=== PATIENT | female | born 1995 | race Caucasian/White ===

== ENCOUNTER → 2016-11-23 | Outpatient (CLI) | payer MEDICAID ==
[~2016-11-23] MED LIST: DIPH25TA82 PO; IBUP-1773 PO; OXYC1TAB16 PO; PREN1TAB19 PO
--- OUTSIDE RECORDS SUMMARY | 2016-11-23 13:59 | XMS REPORT ---
Author Author ADELFO JAMIL [facility] Address [address] [place], [place] [id number] Care Team Providers Care Used Car Lot Attendant Name Role Phone Mookie JAMIL PCP Unavailable Allergies and Adverse Reactions Name Reaction Notes No known drug allergy Plan of Treatment Planned Activity Comments Planned Date Planned Time Plan/Goal Injection, Subcutaneous/IM 09/24/2016 12:00 AM Medications Active Name Start Date Estimated Completion Date SIG Comments phentermine 37.5 mg oral tablet buspirone 10 mg oral tablet Problem List Not available. Vital Signs Date Time BP-Sys(mm[Hg] BP-Rafaela(mm[Hg]) HR(bpm) RR(rpm) Temp WT HT HC BMI BSA BMI Percentile O2 Sat(%) 09/24/2016 2:47:00 PM 110 mmHg 70 mmHg 103 bpm 16 rpm 96.9 F 194 lbs 68 in 29.50 kg/m2 2.05 m2 97 % Social History Name Description Comments smoking no Alcohol Use - Rare Uses seatbelts yes Exercises regularly yes History of Procedures Not available. Results Summary Not available. History Of Immunizations Not available. History of Past Illness Name Date of Onset Comments Hemorrhoid Anxiety Depression Eustachian tube dysfunction, bilateral Sep 24 2016 2:47PM Moderate Acute Purulent postnasal drainage Sep 24 2016 2:47PM Moderate Acute Sinus pressure Sep 24 2016 2:47PM Acute frontal sinusitis, recurrence not specified Sep 24 2016 2:47PM Payers Insurance Name Company Name Plan Name Plan Number Policy Number Policy Group Number Start Date [employer] - [facility] - [place] State Plan [facility] State Plan [id number] N/A History of Encounters Visit Date Visit Type Provider 09/24/2016 Office visit ADELFO PARSONS
--- NOTE | 2016-11-23 15:08 | Diagnostic Imaging Report ---
PROCEDURE: US OB SINGLE FETUS <14 WKS. TECHNIQUE: Multiple real-time grayscale images were obtained over the gravid uterus in various projections. INDICATION: Uncertain dates. COMPARISON: There are no prior studies available for comparison. FINDINGS: There is a gestational sac within the uterus containing a single live embryo. Embryonic heart motion was noted, and a rate of 156 BPM was recorded. The crown-rump length suggests the estimated gestational age is 7 weeks 1 day, +/-1/2 week. There were no obvious embryonic abnormalities identified. The amniotic fluid volume is within normal limits. At this time, it is not certain where the placenta will develop. The right ovary was visualized and was generally unremarkable. The left ovary was not identified. There is no pelvic mass or free fluid collection noted. IMPRESSION: 1. There is a single live intrauterine of approximately 7 weeks 1 day gestation, +/- 1/2 week. The EDC is July 11, 2017. 2. There were no obvious embryonic abnormalities identified. If a more sensitive evaluation of the anatomy is desired, then a short-term (12-14 week) followup ultrasound exam would be recommended for further study. Dictated by: Dictated on workstation # [id number]
== END ==
LOC: RAD 13:55
PROVIDERS: ATTEND Family Medicine
DX: Z34.91 Encounter for supervision of normal pregnancy, unspecified, first trimester (principal); Z3A.01 Less than 8 weeks gestation of pregnancy
CPT/HCPCS: 76801

== ENCOUNTER → 2017-04-13 | Outpatient (CLI) | payer MEDICAID ==
[~2017-04-13] MED LIST changes: +AMIT50TA3 PO; +BUSP10TA95 PO; +DIPH25TA31 PO; +DOCU100C37 PO; +IBUP-1780 PO; +OXYC-465 PO; +[UNRECOGNIZED DRUG - CODE] PO
--- NOTE | 2017-04-13 17:17 | Diagnostic Imaging Report ---
INDICATION: survey. TECHNIQUE: OB sonography performed in the routine fashion and compared to the prior study of 11/23/2016. FINDINGS: A single live intrauterine fetus is seen measuring at 27 weeks 0 days in size. This is close to the dates expected clinically. survey showed no detectable abnormalities although cord insertion was not well seen due to position. heart rate is 133 beats per minute. Placenta is anterior with no evidence of previa. The fetus is in variable presentation. Biometrical measurements are as follows: Biparietal 6.52 cm, age 26 weeks 3 days. Head circumference 24.81 cm, age 27 weeks 0 days. Abdominal circumference 21.8 cm, age 26 weeks 3 days. Femur length 5.25 cm, age 28 weeks 0 days. Sonographic estimate age: 27 weeks 0 days. Sonographic estimated date of delivery: 07/13/2017. Estimated Weight: 1006 gm (+/- 147 gm). LMP percentile: 26%. heart rate: 133 beats per minute. number: 1 of 1. IMPRESSION: Single live intrauterine fetus measuring 27 weeks 0 days in size with normal interval growth since the prior study. survey showed no detectable abnormalities although cord insertion was not well seen. Consider followup as clinically warranted. Dictated by: Dictated on workstation # [id number]
== END ==
LOC: RAD 13:18
PROVIDERS: ATTEND Family Medicine
DX: Z36 Encounter for antenatal screening of mother (principal); Z3A.27 27 weeks gestation of pregnancy
CPT/HCPCS: 76805

== ENCOUNTER 2017-07-05 13:14 | Outpatient (CLI) | payer MEDICAID ==
[~2017-07-05] VITALS: Ht 170.2 cm; Wt 124.7 kg
[~2017-07-05 13:14] MED LIST changes: -AMIT50TA3 PO; -BUSP10TA95 PO; -DIPH25TA31 PO; -DOCU100C37 PO; -IBUP-1780 PO; -OXYC-465 PO; -[UNRECOGNIZED DRUG - CODE] PO
[2017-07-05] MEDS ORDERED: AMIT50TA3 PO (14:46)
[2017-07-05] MEDS ORDERED: BUSP10TA95 PO (14:46)
[2017-07-05] MEDS ORDERED: [UNRECOGNIZED DRUG - CODE] PO (14:46)
[2017-07-05] MEDS ORDERED: DIPH25TA31 PO (14:47)
[2017-07-07] MEDS ORDERED: IBUP-1780 PO (07:43)
[2017-07-07] MEDS ORDERED: OXYC-465 PO (07:43)
[2017-07-07] MEDS ORDERED: DOCU100C37 PO (07:44)
== END 2017-07-05 15:22 ==
LOC: PREOP 13:14
PROVIDERS: ATTEND Obstetrics & Gynecology
DX: Z01.818 Encounter for other preprocedural examination (principal); O34.219 Maternal care for unspecified type scar from previous cesarean delivery; D64.9 Anemia, unspecified; Z3A.00 Weeks of gestation of pregnancy not specified

== ENCOUNTER 2017-07-06 06:05 | Inpatient (IN) | payer MEDICAID ==
[~2017-07-06] VITALS: Ht 172.7 cm; Wt 133.0 kg
[~2017-07-06 06:05] MED LIST changes: +AMIT50TA3 PO; +BUSP10TA95 PO; +DIPH25TA31 PO; +[UNRECOGNIZED DRUG - CODE] PO
[2017-07-06] MEDS ORDERED: ceFAZolin 2 GM/50 ML NS 50 ML ONE (06:12)
[2017-07-06] MEDS ORDERED: metroNIDAZOLE 500MG/100ML IVPB 100 ML ONE (06:12)
[2017-07-06] MEDS ORDERED: METOCLOPRAMIDE INJ 10 MG/2 ML (REGLAN) ONE (06:12)
[2017-07-06] MEDS ORDERED: FAMOTIDINE 20MG/2ML IV (PEPCID) ONE (06:12)
[2017-07-06] MEDS ORDERED: CITRIC ACID/SOB CIT (BICITRA) 30 ML UDC ONE (06:12)
[2017-07-06] MEDS ORDERED: FAMOTIDINE 20MG/2ML IV (PEPCID) IV ONE (06:30)
[2017-07-06] MEDS ORDERED: CITRIC ACID/SOB CIT (BICITRA) 30 ML UDC PO ONE (06:30)
[2017-07-06] MEDS ORDERED: METOCLOPRAMIDE INJ 10 MG/2 ML (REGLAN) IV ONE (06:30)
[2017-07-06] MEDS ORDERED: CATHETER FLUSH 10 ML SYR IV PRN (06:30)
[2017-07-06] MEDS: LACTATED RINGERS 1,000 ML IV PRN ×2 (06:30→07:25)
[2017-07-06 06:55] LABS: BASOPHILS % (AUTO) 0 % (0-10); EOSINOPHILS # (AUTO) 0.3 10^3/uL (0.0-0.3); EOSINOPHILS % (AUTO) 2 % (0-10); LYMPHOCYTES # (AUTO) 3.1 X 10^3 (1.0-4.0); LYMPHOCYTES % (AUTO) 21 % (12-44); MEAN CORPUSCULAR HEMOGLOBIN 29 PG (25-34); MEAN CORPUSCULAR HGB CONC 34 G/DL (32-36); MEAN CORPUSCULAR VOLUME 87 FL (80-99); MEAN PLATELET VOLUME 10.1 FL (7.4-10.4); MONOCYTES # (AUTO) 1.4 X 10^3 (0.0-1.0); MONOCYTES % (AUTO) 10 % (0-12); NEUTROPHILS # (AUTO) 10.1 X 10^3 (1.8-7.8); NEUTROPHILS % (AUTO) 67 % (42-75); PLATELET COUNT 330 10^3/uL (130-400); RED BLOOD COUNT 4.82 10^6/uL (4.35-5.85); RED CELL DISTRIBUTION WIDTH 13.1 % (10.0-14.5)
[2017-07-06] MEDS ORDERED: fentaNYL INJECTION 100 MCG/2 ML AMP ONE (06:56)
[2017-07-06] MEDS ORDERED: KETAMINE HCL 100 MG/ML 5 ML VIAL ONE (06:56)
[2017-07-06] MEDS ORDERED: D5 LR IV SOLUTION 1,000 ML IV SCH (07:11)
[2017-07-06] MEDS ORDERED: TETANUS,DIPTH,PERTUSS P/F (BOOSTRIX) 0.5 ML VIAL IM ONE (07:15)
[2017-07-06] MEDS ORDERED: PROMETHAZINE INJ 25 MG/ML (PHENERGAN) AMP IM PRN (07:15)
[2017-07-06] MEDS ORDERED: MEPERIDINE (DEMEROL) INJ 100 MG/ML IM PRN (07:15)
[2017-07-06] MEDS ORDERED: metroNIDAZOLE 500MG/100ML IVPB 100 ML IV ONE (07:15)
[2017-07-06] MEDS ORDERED: MEASLES,MUMPS,RUBELLA 1 EA INJ SC ONE (07:15)
[2017-07-06] MEDS ORDERED: ceFAZolin INJECTION 1,000 MG in NS (IVPB) 50 ML IV ONE (07:15)
--- NOTE | 2017-07-06 07:16 | History & Physical ---
History and Physical Date Seen by Provider: Jul 06, 2017 Time Seen by Provider: 07:14 this patient is a 21-year-old white female patient of Dr. Chadwick who presents now at 39+ weeks' gestation. She currently has active herpetic lesions on the labia.. She denies rupture membranes or bleeding. She had a GBS culture that was negative. Plan is for elective delivery to avoid potential exposure to the HSV Allergies are to codeine medications are vitamins S medical history past surgical history obstetric history family history and social histories are per the antepartum record HEENT exam is normal Neck is supple no lymphadenopathy no thyromegaly Abdomen is gravid soft nontender nondistended Extreme show clubbing cyanosis. There is no significant edema. Pelvic exam is deferred Laboratory Tests 07/06/17 06:30 assessment and plan term at 39 weeks plus gestation patient with active genital herpes. Plan is for primary delivery 39 week gestation with active HSV Allergies and Home Medications Allergies Coded Allergies: codeine (Verified Allergy, Unknown, 11/02/13) Home Medications Amitriptyline HCl 50 Mg Tablet, 50 MG PO HS, (Reported) Buspirone HCl 10 Mg Tablet, 20 MG PO DAILY, (Reported) take 2 (10mg) tab Diphenhydramine HCl 25 Mg Tablet, 25 MG PO HS, (Reported) Erythromycin Base 333 Mg Tablet., 333 MG PO DAILY, (Reported) MARIO MCKEON MD Jul 06, 2017 7:16 am
[2017-07-06 07:17] VITALS: BP 124/60
[2017-07-06] MEDS ORDERED: D5 LR IV SOLUTION 1,000 ML IV ONE (07:19)
[2017-07-06] MEDS ORDERED: PHENYLEPHRINE 100 MCG/ML 10 ML (ANESTHESIA) SYR ONE (07:39)
[2017-07-06] MEDS ORDERED: OXYTOCIN/NORMAL SALINE 1,000 ML IV ONE (07:41)
[2017-07-06] MEDS ORDERED: ONDANSETRON 4 MG/2 ML (SDV) Z0FRAN ONE ×2 (07:41→07:43)
[2017-07-06] MEDS: KETOROLAC 30 MG/ML VIAL IVP SCH ×3 (07:50→19:57)
[2017-07-06] MEDS: OXYTOCIN/NORMAL SALINE 500 ML IV SCH ×2 (08:25→12:53)
[2017-07-06 09:00] VITALS: BP 113/70
[2017-07-06 10:15] VITALS: BP 115/67
[2017-07-06] MEDS: oxyCODONE/APAP 10/325MG (PERCOCET 10) TABLET PO PRN ×3 (10:35→21:00)
[2017-07-06] MEDS ORDERED: diphenhydrAMINE 50 MG/ML INJ (BENADRYL) ONE (10:56)
[2017-07-06] MEDS ORDERED: diphenhydrAMINE 50 MG/ML INJ (BENADRYL) IM PRN (11:00)
[2017-07-06 13:12] VITALS: BP 136/76
[2017-07-06] MEDS: DOCUSATE SODIUM 100 MG (COLACE) CAP PO SCH ×2 (13:52→19:57)
[2017-07-06] MEDS ORDERED: INFLUENZA TRIvalent 2017-2018 0.5 ML/45 MCG SYR IM ONE (15:00)
[2017-07-06 16:00] VITALS: BP 124/76
--- NOTE | 2017-07-06 18:23 | OPERATIVE REPORT ---
DATE OF SERVICE: 07/06/2017 PREOPERATIVE DIAGNOSIS: Term at 39+ weeks gestation in a patient with active genital herpes. POSTOPERATIVE DIAGNOSIS: Term at 39+ weeks gestation in a patient with active genital herpes. OPERATIVE PROCEDURE: Primary low transverse delivery of a viable female with Apgars of 8 and 9 at 1 and 5 minutes respectively, the weight of 7 pounds 15 ounces, time of 0730 and a cord pH of 7.31. PAINTINGS CONSERVATOR FOR THE DELIVERY: Xavier Head M.D. OCCUPATIONAL THERAPY SUPERVISOR FOR THE DELIVERY: Xavier Head M.D. OPERATIVE DESCRIPTION: With the patient in the supine position under satisfactory spinal anesthesia, she was prepped and draped in the usual fashion for abdominal surgery. Sherman catheter was placed in the urinary bladder. A Pfannenstiel incision was made through the skin with the scalpel. The patient's abdomen had entered in the usual manner. Bladder retractor placed into position. Clean scalpel was used to make a 4 cm hysterotomy incision transversely across the lower uterine segment. Copious clear fluid was released on hysterotomy. The incision was extended bluntly and then a vigorous viable female was delivered via the uterine incision. The had Apgars of 8 and 9 at 1 and 5 minutes respectively, weight of 7 pounds 15 ounces, cord blood arterial pH of 7.31 and time of 0730. The infant was bulb suctioned on delivery of the head and again on completion of delivery. The umbilical cord was doubly clamped and cut and the infant was taken to the warmer by Dr. Head, the color adviser in attendance for delivery. Cord bloods were obtained. The placenta delivered spontaneously Rodney. It was normal with a 3-vessel cord. The uterus was exteriorized, anterior wiped clean with a wet laparotomy sponge. The incision was then closed with a running lock suture of 2-0 Vicryl. Hemostasis was complete. The uterus was returned to the abdominal cavity. All blood clot and debris removed from the abdominal cavity. With sponge and needle counts correct, hemostasis assured. The anterior parietal peritoneum was closed with a running suture of 2-0 Vicryl. The rectus muscles were closed with that suture as well. Rectus fascia was closed with 2-0 Vicryl, subcutaneous tissue was closed with 2-0 Vicryl and the skin was stapled. Sponge and needle counts were correct at the end of procedure. Estimated blood loss for the procedure was around 600 mL. The patient tolerated the procedure well and was recovered in the recovery room. The was taken to the full term nursery under the care of Keke Bahena, the pediatric nurse in attendance for the delivery in conjunction with Dr. Head. Job ID: [id number] DocumentID: [id number] Dictated Date: 07/06/2017 07:56:16 Parish Visitor Date: 07/06/2017 18:22:13 Dictated By: MARIO MCKEON MD MTDD
[2017-07-06 20:00] VITALS: BP 120/76
[2017-07-06] MEDS: diphenhydrAMINE 25 MG TAB (BENADRYL) PO PRN (21:00)
[2017-07-06] MEDS: AMITRIPTYLINE 50 MG (ELAVIL) TAB PO SCH (21:00)
[2017-07-07] VITALS (7 sets, daily range): BP systolic 107–143; BP diastolic 65–91
[2017-07-07] MEDS: oxyCODONE/APAP 10/325MG (PERCOCET 10) TABLET PO PRN ×5 (01:08→22:22)
[2017-07-07] MEDS: KETOROLAC 30 MG/ML VIAL IVP SCH (01:47)
[2017-07-07] MEDS: diphenhydrAMINE 25 MG TAB (BENADRYL) PO PRN (05:25)
--- NOTE | 2017-07-07 07:42 | Progress Note-Standard ---
Standard Progress Note Progress Notes/Assess & Plan Date Seen by Provider: Jul 07, 2017 Time Seen by Provider: 07:41 Progress/Assessment & Plan this patient is without complaint. She is ambulating, voiding, tolerating by mouth well, has good pain control. Patient denies chest pain, denies shortness of breath, denies nausea vomiting, denies headache. Vital Signs Date Time Temp Pulse Resp B/P (MAP) Pulse Ox O2 Delivery O2 Flow Rate FiO2 07/07/17 04:45 97.3 94 20 111/66 99 Room Air 07/07/17 00:30 98.4 87 18 116/65 99 Room Air 07/06/17 20:00 98.7 89 18 120/76 100 Room Air 07/06/17 16:00 97.8 93 18 124/76 98 Room Air 07/06/17 13:12 100.1 101 20 136/76 99 Room Air 07/06/17 10:15 97.9 87 20 115/67 99 Room Air 07/06/17 09:00 97.1 79 18 113/70 100 Room Air vital signs are stable. Patient is afebrile. Fundus is firm below the umbilicus and nontender. Extremities show no clubbing cyanosis. There is no Homans sign. Assessment and plan post operative day number 1 status post primary delivery at 39 weeks gestation. Patient doing well and will have routine convalescence care. MARIO MCKEON MD Jul 07, 2017 7:42 am
[2017-07-07] MEDS ORDERED: IBUP-1780 PO (07:43)
[2017-07-07] MEDS ORDERED: OXYC-465 PO (07:43)
[2017-07-07] MEDS ORDERED: DOCU100C37 PO (07:44)
--- NOTE | 2017-07-07 07:45 | Discharge Instructions ---
Discharge Instructions Discharge Medications New, Converted or Re-Newed RX: RX on Chart Patient Instructions Patient Instructions: as directed Return to The Hospital For: as directed Activity & Diet Discharge Diet: No Restrictions Activity as Tolerated: No Orders-Post D/C & Referrals Follow Up Appt: RTC 1 week for incision check with me Call to make follow up appt. for patient with Dr. Head in 6 weeks. Wound Care: Remove nery, apply benzoin and steri strips. Activity Per routine post instructions. Please call in RX to patient pharmacy. Diet as tolerated Patient may shower or tub bathe as desired. Continue home meds MARIO MCKEON MD Jul 07, 2017 7:45 am
[2017-07-07] MEDS: IBUPROFEN 800 MG (MOTRIN) TAB PO SCH ×3 (09:55→20:30)
[2017-07-07] MEDS: DOCUSATE SODIUM 100 MG (COLACE) CAP PO SCH ×2 (09:55→20:30)
--- NOTE | 2017-07-07 12:37 | Anesthesia-Regional Post-Op ---
Regional Patient Condition Mental Status: Alert, Oriented x3 Circulation: Same as Pre-Op Headache: Absent Sensation: Full Recovery Motor Block: Absent Post Op Complications Complications None Follow Up Care/Instructions Patient Instructions None needed. Anesthesia/Patient Condition Patient is doing well, no complaints, stable vital signs, no apparent adverse anesthesia problems. No complications reported per nursing. D/C home per [facility] Criteria: No JARVIS RENEE CRNA Jul 07, 2017 12:37
[2017-07-07] MEDS: AMITRIPTYLINE 50 MG (ELAVIL) TAB PO SCH (22:22)
[2017-07-07] MEDS ORDERED: SIMETHICONE 80 MG (MYLICON) CHEW ONE (22:26)
[2017-07-07] MEDS: SIMETHICONE 80 MG (MYLICON) CHEW PO PRN (22:35)
[2017-07-08 02:10] VITALS: BP 124/81
[2017-07-08] MEDS: IBUPROFEN 800 MG (MOTRIN) TAB PO SCH ×3 (02:10→15:11)
[2017-07-08] MEDS: oxyCODONE/APAP 10/325MG (PERCOCET 10) TABLET PO PRN ×3 (04:42→13:13)
[2017-07-08 07:45] VITALS: BP 108/68
[2017-07-08] MEDS: DOCUSATE SODIUM 100 MG (COLACE) CAP PO SCH (07:46)
--- NOTE | 2017-07-08 08:03 | Progress Note-Standard ---
Standard Progress Note Progress Notes/Assess & Plan Date Seen by Provider: Jul 08, 2017 Time Seen by Provider: 08:01 Progress/Assessment & Plan this patient is without complaint. She is ambulating, voiding, tolerating by mouth well, has good pain control. Patient denies chest pain, denies shortness of breath, denies nausea vomiting, denies headache. Vital Signs Date Time Temp Pulse Resp B/P (MAP) Pulse Ox O2 Delivery O2 Flow Rate FiO2 07/07/17 04:45 97.3 94 20 111/66 99 Room Air 07/07/17 00:30 98.4 87 18 116/65 99 Room Air 07/06/17 20:00 98.7 89 18 120/76 100 Room Air 07/06/17 16:00 97.8 93 18 124/76 98 Room Air 07/06/17 13:12 100.1 101 20 136/76 99 Room Air 07/06/17 10:15 97.9 87 20 115/67 99 Room Air 07/06/17 09:00 97.1 79 18 113/70 100 Room Air vital signs are stable. Patient is afebrile. Fundus is firm below the umbilicus and nontender. Extremities show no clubbing cyanosis. There is no Homans sign. Assessment and plan post operative day number 1 status post primary delivery at 39 weeks gestation. Patient doing well and will have routine convalescence care. July 08, 2017 Patient without complaint. She is ambulating, voiding, tolerating fairly well, has good pain control. Vital Signs Date Time Temp Pulse Resp B/P (MAP) Pulse Ox O2 Delivery O2 Flow Rate FiO2 07/08/17 07:45 96.7 79 18 108/68 98 Room Air 07/08/17 02:10 97.9 105 18 124/81 98 Room Air 07/07/17 20:30 98.0 102 18 143/91 99 Room Air 07/07/17 14:52 98.3 68 18 119/69 99 Room Air 07/07/17 12:45 97.0 98 18 121/77 100 Room Air signs are stable. Patient is afebrile. The abdomen is benign. The surgical incision is clean dry and intact. Fundus is firm below the umbilicus and nontender. Extremities show no clubbing cyanosis. There is no Homans sign. There is some pretibial pitting edema that is normal. Assessment and plan postoperative day number 2 status post primary delivery at 39 weeks gestation due to active HSV. Plan is for discharge home with follow-up in clinic. If her baby is not discharged she will room in Final Diagnosis 39 week primary delivery MARIO MCKEON MD Jul 08, 2017 8:02 am
[2017-07-08 12:35] VITALS: BP 136/80
[2017-07-08] MEDS ORDERED: TETANUS,DIPTH,PERTUSS P/F (BOOSTRIX) 0.5 ML VIAL IM ONE (13:00)
[2017-07-08] MEDS ORDERED: INFLUENZA TRIvalent 2017-2018 0.5 ML/45 MCG SYR IM ONE (13:00)
[2017-07-08] MEDS: SIMETHICONE 80 MG (MYLICON) CHEW PO PRN (13:13)
[2017-07-08 16:30] VITALS: BP 134/81
[2017-07-08 17:50] VITALS: BP 134/81
== END 2017-07-08 17:50 | disposition home or self-care (01) | DRG 766 ==
LOC: LDRP 06:05
PROVIDERS: ADMIT Obstetrics & Gynecology; ATTEND Obstetrics & Gynecology
PROC: 10D00Z1 Extraction of Products of Conception, Low, Open Approach (ICD-10-PCS; principal; 2017-07-06 07:10)
DX: O98.313 Other infections with a predominantly sexual mode of transmission complicating pregnancy, third trimester (principal); B00.1 Herpesviral vesicular dermatitis; Z3A.39 39 weeks gestation of pregnancy; Z37.0 Single live birth; Z23 Encounter for immunization
CPT/HCPCS: 36415; 85025; 86850; 86870; 86900; 86901; 86902; 90715; 94664